=== PATIENT | female | born 1960 ===

== ENCOUNTER → 2020-07-25 13:13 | Outpatient (BNVA) | payer MEDICAID, SELFPAY | PROVIDERS: PCP Family Medicine; Referring Provider Family Medicine; Visit Provider Student in an Organized Health Care Education/Training Program | DX: M15.4 Erosive (osteo)arthritis (principal) | CPT/HCPCS: 99212 ==

== ENCOUNTER 2020-12-15 09:12 | Outpatient (REF) | payer MEDICAID, SELFPAY ==
[2020-12-15 10:23] LABS: Hematocrit 39.6 % (37-47); Mean Corpuscular HGB Conc 32.8 g/dl (31.0-35.0); Mean Corpuscular Hemoglobin 30.2 pg (27.0-33.0); Mean Corpuscular Volume 91.9 fL (80-98); Mean Platelet Volume 9.7 fL (9.4-12.3); Platelet Count 258 X10*3/uL (160-400); Red Blood Count 4.31 X10*6/uL (4.20-5.50); Red Cell Distribution Width 12.5 % (11.0-16.0); White Blood Count 4.5 X10*3/uL (4.8-10.8)
[2020-12-15 10:30] LABS: Estimated Average Glucose 117 mg/dL; Hemoglobin A1c % 5.7 %
[2020-12-15 10:49] LABS: Alanine Aminotransferase 13 U/L (0-31); Albumin Level 4.4 g/dL (3.5-5.0); Alkaline Phosphatase 82 U/L (39-117); Anion Gap 10 (12-20); Aspartate Amino Transferase 18 U/L (5-31); Bilirubin Direct 0.2 mg/dL (0.0-0.5); Bilirubin Total 0.5 mg/dL (0.0-1.0); Blood Urea Nitrogen 18 mg/dL (9-16); Calcium 9.4 mg/dL (8.4-10.2); Carbon Dioxide 28 mmol/L (22-29); Chloride 105 mmol/L (96-108); Cholesterol 195 mg/dL; Estimated Glomerular Filt Rate > 60; Glucose Random 97 mg/dL (60-115); HDL Cholesterol 45 mg/dL; LDL Cholesterol Calculated 127 mg/dl; Potassium 4.3 mmol/L (3.3-5.1); Sodium 139 mmol/L (135-145); Total Protein 7.7 g/dL (6.5-8.0); Triglycerides 119 mg/dL
[2020-12-15 10:58] LABS: Thyroid Stimulating Hormone 1.71 uIU/mL (0.32-4.0); Vitamin D 25-OH Total 20.4 ng/mL (>30)
[2020-12-15 11:38] LABS: Creatinine Urine 172.27 mg/dL
== END 2020-12-15 09:13 | disposition home or self-care (01) ==
LOC: HO.LAB 09:12
PROVIDERS: PCP Family Medicine; Visit Provider Family Medicine
DX: I10 Essential (primary) hypertension (principal)
CPT/HCPCS: 36415; 80048; 80061; 80076; 82043; 82306; 83036; 84439; 84443; 85027

== ENCOUNTER 2021-01-12 13:14 | Outpatient (REF) | payer MEDICAID, SELFPAY ==
--- NOTE | ~2021-01-12 | MM_ITS ---
EXAMINATION: MM SCREENING DIGITAL BREAST TOMOSYNTHESIS, BILATERAL CLINICAL INFORMATION: Screening. Asymptomatic. The lifetime risk of breast cancer based on the Tyrer-Cuzick Model is 8%. COMPARISON: Mammography: 06/30/2018, 05/08/2017, 03/18/2016 TECHNIQUE: Digital breast tomosynthesis is performed in both the craniocaudal and mediolateral oblique views along with computer-aided detection (CAD). Synthesized 2D images are generated from the tomosynthesis. FINDINGS: The breasts are heterogeneously dense, which may obscure small masses (ACR BI-RADS breast composition Category c). There are no significant masses, abnormal calcifications, or other abnormalities. Breast tissue composition borders on average fibroglandular. Parenchymal pattern is similar to prior exams. No significant changes. MM/MM tomosynthesis screening BI IMPRESSION: No mammographic evidence of malignancy. ASSESSMENT: BI-RADS 1: Negative RECOMMENDATION: Routine annual mammography screening. This patient's information was entered into a reminder system with a target due date for their next mammogram.
== END 2021-01-12 13:15 | disposition home or self-care (01) ==
LOC: HO.MAMMO 13:14
PROVIDERS: Visit Provider Family Medicine
DX: Z12.31 Encounter for screening mammogram for malignant neoplasm of breast (principal)
CPT/HCPCS: 77063; 77067

== ENCOUNTER 2021-10-27 09:25 | Outpatient (REF) | payer MEDICAID, SELFPAY ==
[2021-10-27 10:04] LABS: Hematocrit 37.5 % (37.0-47.0); Hemoglobin 12.6 g/dl (12.0-16.0); Mean Corpuscular HGB Conc 33.6 g/dl (31.0-35.0); Mean Corpuscular Hemoglobin 30.5 pg (27.0-33.0); Mean Corpuscular Volume 90.8 fL (80.0-98.0); Mean Platelet Volume 9.6 fL (9.4-12.3); Platelet Count 287 X10*3/uL (160-400); Red Blood Count 4.13 X10*6/uL (4.20-5.50); White Blood Count 4.4 X10*3/uL (4.8-10.8)
[2021-10-27 10:10] LABS: Estimated Average Glucose 120 mg/dL; Hemoglobin A1c % 5.8 %
[2021-10-27 10:27] LABS: Alanine Aminotransferase 13 U/L (0-31); Albumin Level 4.4 g/dL (3.5-5.0); Alkaline Phosphatase 79 U/L (39-117); Anion Gap 11 (12-20); Aspartate Amino Transferase 18 U/L (5-31); Bilirubin Direct 0.2 mg/dL (0.0-0.5); Bilirubin Total 0.4 mg/dL (0.0-1.0); Blood Urea Nitrogen 22 mg/dL (9-16); Calcium 9.7 mg/dL (8.4-10.2); Carbon Dioxide 26 mmol/L (22-29); Chloride 104 mmol/L (96-108); Cholesterol 202 mg/dL; Estimated Glomerular Filt Rate > 60; Glucose Random 99 mg/dL (60-115); HDL Cholesterol 48 mg/dL; LDL Cholesterol Calculated 136 mg/dl; Potassium 4.4 mmol/L (3.3-5.1); Sodium 137 mmol/L (135-145); Total Protein 8.1 g/dL (6.5-8.0); Triglycerides 91 mg/dL
[2021-10-27 10:49] LABS: Free T4 (Free Thyroxine) 0.85 ng/dL (0.71-1.85); Thyroid Stimulating Hormone 1.84 uIU/mL (0.32-4.0); Vitamin D 25-OH Total 18.5 ng/mL (>30)
[2021-10-27 11:49] LABS: Creatinine Urine 90.33 mg/dL; Microalbumin Urine < 5.0 mg/L
[2021-10-27 12:30] LABS: CT PCR NOT DETECTED (Not Detect.); NG PCR NOT DETECTED (Not Detect.)
[2021-10-29 03:48] LABS: HIV AB/AG Nonreactive (Nonreactive); HIV Num 1 0.14 S/CO (0.00-0.99)
[2021-10-29 03:49] LABS: ~HepC Num1 0.15 S/CO (0.00-0.79); ~Hepatitis C Antibody Nonreactive (Nonreactive)
[2021-10-29 06:01] LABS: Syphilis Screen Nonreactive (Nonreactive)
== END 2021-10-27 09:26 | disposition home or self-care (01) ==
LOC: HO.LAB 09:25
PROVIDERS: PCP Family Medicine; Visit Provider Family Medicine
DX: Z00.00 Encounter for general adult medical examination without abnormal findings (principal); Z11.4 Encounter for screening for human immunodeficiency virus [HIV]; Z11.3 Encounter for screening for infections with a predominantly sexual mode of transmission; I10 Essential (primary) hypertension
CPT/HCPCS: 80053; 80061; 82043; 82248; 82306; 83036; 84439; 84443; 85027; 86780; 86803; 87389; 87491; 87591

== ENCOUNTER 2021-12-26 10:34 | Outpatient (REF) | payer MEDICAID, SELFPAY ==
--- NOTE | 2021-12-26 10:39 | EMG_ITS ---
HISTORY OF PRESENT ILLNESS: This is a 61-year-old woman with a 3-month history of pain, numbness, and tingling in the upper extremities with the right being slightly worse than the left. PHYSICAL EXAMINATION: On examination, she is alert, oriented with normal intellectual functions. Her cranial nerves II through XII are normal. Muscle tone and strength are normal in all 4 extremities. No Tinel or Phalen sign. IMPRESSION: Rule out carpal tunnel syndrome. Nerve conduction EMG study: Early carpal tunnel syndrome bilaterally. Normal EMG of the right C5-T1 innervated muscles. MD ROMÁN Winston/FELICITA / [id number]
== END 2021-12-26 10:35 | disposition home or self-care (01) ==
LOC: HO.NEURO 10:34
PROVIDERS: Visit Provider Family Medicine
DX: M79.601 Pain in right arm (principal); M79.602 Pain in left arm
CPT/HCPCS: 95885; 95913

== ENCOUNTER 2022-01-02 09:05 | Outpatient (REF) | payer MEDICAID, SELFPAY ==
--- NOTE | ~2022-01-02 | XR_ITS ---
EXAMINATION: XR HAND, LEFT CLINICAL INFORMATION: Pain COMPARISON: Previous x-ray December 2018 TECHNIQUE: PA, lateral, and oblique views of the left hand. FINDINGS: No fracture or dislocation. Bone alignment is normal. There is arthritis at the DIP joints of the second through fifth fingers with joint space narrowing and osteophyte formation. There is increasing erosive change questionable for erosive osteoarthritis at the second and fourth and fifth fingers. This is increased from 2019. There is mild arthritis at the first ASSISTED joint with joint space narrowing and osteophyte formation. Soft tissues are unremarkable. XR/XR hand LT min 3V IMPRESSION: Increasing arthritis compared to December 2018.
== END 2022-01-02 09:06 | disposition home or self-care (01) ==
LOC: HO.HOSX 09:05
PROVIDERS: Visit Provider Orthopaedic Surgery
DX: M18.12 Unilateral primary osteoarthritis of first carpometacarpal joint, left hand (principal); G56.03 Carpal tunnel syndrome, bilateral upper limbs
CPT/HCPCS: 20600; 73130; 99202; J1020

== ENCOUNTER 2022-03-30 10:24 | Outpatient (REF) | payer MEDICAID, SELFPAY ==
--- NOTE | ~2022-03-30 | MM_ITS ---
EXAMINATION: MM SCREENING DIGITAL BREAST TOMOSYNTHESIS, BILATERAL CLINICAL INFORMATION: Screening. Asymptomatic. The lifetime risk of breast cancer based on the Tyrer-Cuzick Model is 8%. COMPARISON: Mammography: 01/12/2021, 07/12/2018, 05/08/2017 TECHNIQUE: Digital breast tomosynthesis is performed in both the craniocaudal and mediolateral oblique views along with computer-aided detection (CAD). Synthesized 2D images are generated from the tomosynthesis. Additional exaggerated left CC view is provided. FINDINGS: The breasts are heterogeneously dense, which may obscure small masses (ACR BI-RADS breast composition Category c). Breast tissue composition borders on average fibroglandular. Parenchymal pattern is similar to prior studies. There are no significant masses, abnormal calcifications, or other abnormalities. The axilla are unremarkable. MM/MM tomosynthesis screening BI IMPRESSION: No mammographic evidence of malignancy. ASSESSMENT: BI-RADS 1: Negative RECOMMENDATION: Routine annual mammography screening. This patient's information was entered into a reminder system with a target due date for their next mammogram.
== END 2022-03-30 10:25 | disposition home or self-care (01) ==
LOC: HO.MAMMO 10:24
PROVIDERS: PCP Family Medicine; Visit Provider Family Medicine
DX: Z12.31 Encounter for screening mammogram for malignant neoplasm of breast (principal)
CPT/HCPCS: 77063; 77067

== ENCOUNTER 2022-11-04 10:15 | Outpatient (REF) | payer MEDICAID, SELFPAY ==
[2022-11-04 10:32] LABS: MANUAL DIFF FLAG NO
[2022-11-04 11:04] LABS: Basophils Absolute Auto 0.1 X10*3/uL (0.0-0.2); Basophils Percent Auto 1.2 % (0-2); Eosinophils Absolute Auto 0.2 X10*3/uL (0.0-0.4); Eosinophils Percent Auto 3.1 % (0-4); Hematocrit 40.7 % (37.0-47.0); Hemoglobin 13.5 g/dl (12.0-16.0); Imm Gran Abs Auto 0.01 X10*3/uL (0.00-0.03); Imm Gran Pct Auto 0.2 % (0.0-0.4); Lymphocytes Absolute Auto 1.6 X10*3/uL (1.2-4.9); Lymphocytes Percent Auto 29.9 % (20-40); Mean Corpuscular HGB Conc 33.2 g/dl (31.0-35.0); Mean Corpuscular Hemoglobin 29.9 pg (27.0-33.0); Mean Corpuscular Volume 90.2 fL (80.0-98.0); Mean Platelet Volume 9.6 fL (9.4-12.3); Monocytes Absolute Auto 0.5 X10*3/uL (0.1-1.2); Monocytes Percent Auto 8.7 % (2-11); Neutrophils Percent Auto 56.9 % (45-73); Platelet Count 286 X10*3/uL (160-400); Red Blood Count 4.51 X10*6/uL (4.20-5.50); Red Cell Distribution Width 12.5 % (11.0-16.0); White Blood Count 5.2 X10*3/uL (4.8-10.8)
[2022-11-04 11:26] LABS: Estimated Average Glucose 120 mg/dL; Hemoglobin A1C 148.7372 umol/L; Hemoglobin A1c % 5.8 %
[2022-11-04 11:48] LABS: Alanine Aminotransferase 14 U/L (0-31); Albumin Level 4.5 g/dL (3.5-5.0); Alkaline Phosphatase 89 U/L (39-117); Anion Gap 12 (12-20); Aspartate Amino Transferase 17 U/L (5-31); Bilirubin Direct 0.1 mg/dL (0.0-0.5); Bilirubin Total 0.4 mg/dL (0.0-1.0); Blood Urea Nitrogen 19 mg/dL (9-16); Calcium 9.6 mg/dL (8.4-10.2); Carbon Dioxide 28 mmol/L (22-29); Chloride 102 mmol/L (96-108); Cholesterol 215 mg/dL; Estimated Glomerular Filt Rate > 60; Glucose Random 103 mg/dL (60-115); HDL Cholesterol 47 mg/dL; LDL Cholesterol Calculated 145 mg/dl; Potassium 4.5 mmol/L (3.3-5.1); Sodium 137 mmol/L (135-145); Total Protein 8.1 g/dL (6.5-8.0); Triglycerides 116 mg/dL
[2022-11-04 12:07] LABS: Free T4 (Free Thyroxine) 0.86 ng/dL (0.71-1.85); Thyroid Stimulating Hormone 1.66 uIU/mL (0.32-4.0); Vitamin D 25-OH Total 25.1 ng/mL (>30)
[2022-11-04 12:12] LABS: Creatinine Urine 102.07 mg/dL; Microalbum/Creatinine Ratio Ur 5.8 ug/mg cr
== END 2022-11-04 10:16 | disposition home or self-care (01) ==
LOC: HO.LAB 10:15
PROVIDERS: PCP Family Medicine; Visit Provider Family Medicine
DX: I10 Essential (primary) hypertension (principal)
CPT/HCPCS: 36415; 80048; 80061; 80076; 82043; 82306; 83036; 84439; 84443; 85025

== ENCOUNTER 2023-08-13 11:27 | Outpatient (REF) | payer MEDICAID, SELFPAY | END 2023-08-13 11:28 | disposition home or self-care (01) | LOC: HO.MAMMO 11:27 | PROVIDERS: PCP Family Medicine; Visit Provider Family Medicine | DX: Z12.31 Encounter for screening mammogram for malignant neoplasm of breast (principal) | CPT/HCPCS: 77063; 77067 ==

== ENCOUNTER → 2023-08-13 11:30 | Outpatient (BNV) | payer MEDICAID, SELFPAY | PROVIDERS: PCP Family Medicine; Visit Provider Radiology Diagnostic Radiology | DX: Z12.31 Encounter for screening mammogram for malignant neoplasm of breast (principal) | CPT/HCPCS: 77063; 77067 ==

== ENCOUNTER 2023-10-01 10:28 | Outpatient (REF) | payer MEDICAID, SELFPAY ==
--- NOTE | ~2023-10-01 | XR_ITS ---
EXAMINATION: XR SHOULDER, RIGHT CLINICAL INFORMATION: Pain of several months' duration. COMPARISON: None available. TECHNIQUE: AP external rotation, Grashey, scapular Y, and axillary views of the right shoulder. FINDINGS: Bony alignment and mineralization are normal. The glenohumeral joint is intact. The acromioclavicular and coracoclavicular intervals are normal. No fracture or dislocation is seen. There is mild cortical irregularity of the greater tuberosity of the proximal right humerus. There is no focal soft tissue calcification or foreign body. No right pneumothorax is seen. XR/XR shoulder LT min 2V IMPRESSION: 1. No fracture or dislocation is seen. 2. There is mild cortical irregularity of the greater tuberosity of the proximal right humerus, which can be associated with rotator cuff impingement. No ness calcific tendinitis is noted. EXAMINATION: XR SHOULDER, LEFT CLINICAL INFORMATION: Pain of several months' duration COMPARISON: None available. TECHNIQUE: AP external rotation, Grashey, scapular Y, and axillary views of the left shoulder. FINDINGS: Bony alignment and mineralization are normal. The glenohumeral joint is intact. The acromioclavicular and coracoclavicular intervals are normal. There is moderate cortical irregularity of the greater tuberosity of the proximal left humerus. No focal soft tissue calcific station or foreign body is seen. There is no right pneumothorax. IMPRESSION: 1. No fracture or dislocation is seen. 2. There is mild cortical irregularity of the greater tuberosity of the proximal left humerus, which can be associated with rotator cuff impingement. No ness calcific tendinitis is noted.
--- NOTE | ~2023-10-01 | XR_ITS ---
EXAMINATION: XR SHOULDER, RIGHT CLINICAL INFORMATION: Pain of several months' duration. COMPARISON: None available. TECHNIQUE: AP external rotation, Grashey, scapular Y, and axillary views of the right shoulder. FINDINGS: Bony alignment and mineralization are normal. The glenohumeral joint is intact. The acromioclavicular and coracoclavicular intervals are normal. No fracture or dislocation is seen. There is mild cortical irregularity of the greater tuberosity of the proximal right humerus. There is no focal soft tissue calcification or foreign body. No right pneumothorax is seen. XR/XR shoulder RT min 2V IMPRESSION: 1. No fracture or dislocation is seen. 2. There is mild cortical irregularity of the greater tuberosity of the proximal right humerus, which can be associated with rotator cuff impingement. No ness calcific tendinitis is noted. EXAMINATION: XR SHOULDER, LEFT CLINICAL INFORMATION: Pain of several months' duration COMPARISON: None available. TECHNIQUE: AP external rotation, Grashey, scapular Y, and axillary views of the left shoulder. FINDINGS: Bony alignment and mineralization are normal. The glenohumeral joint is intact. The acromioclavicular and coracoclavicular intervals are normal. There is moderate cortical irregularity of the greater tuberosity of the proximal left humerus. No focal soft tissue calcific station or foreign body is seen. There is no right pneumothorax. IMPRESSION: 1. No fracture or dislocation is seen. 2. There is mild cortical irregularity of the greater tuberosity of the proximal left humerus, which can be associated with rotator cuff impingement. No ness calcific tendinitis is noted.
--- NOTE | ~2023-10-01 | XR_ITS ---
EXAMINATION: XR LUMBOSACRAL SPINE CLINICAL INFORMATION: Lower back pain radiating to the left knee. COMPARISON: None available. TECHNIQUE: AP and lateral views of the lumbar spine and lateral view of the lumbosacral junction. FINDINGS: There is mild bony demineralization. There is a mild lumbar rotatory levoscoliosis. The lumbar disc spaces are well-maintained. No acute fracture or spondylolisthesis is seen. There is multi-level lower thoracic and upper lumbar anterior endplate arthropathy. The posterior elements are intact. The paravertebral soft tissues are unremarkable. There are pelvic phleboliths. XR/XR lumbar spine 2-3V IMPRESSION: 1. There is a mild lumbar rotatory levoscoliosis. 2. No acute fracture or spondylolisthesis is seen. 3. The lumbar disc spaces are well-maintained.
[2023-10-01 11:23] LABS: Hematocrit 38.4 % (37.0-47.0); Mean Corpuscular HGB Conc 33.9 g/dl (31.0-35.0); Mean Corpuscular Hemoglobin 30.3 pg (27.0-33.0); Mean Corpuscular Volume 89.5 fL (80.0-98.0); Mean Platelet Volume 9.6 fL (9.4-12.3); Platelet Count 275 X10*3/uL (160-400); Red Blood Count 4.29 X10*6/uL (4.20-5.50); Red Cell Distribution Width 12.7 % (11.0-16.0); White Blood Count 6.2 X10*3/uL (4.8-10.8)
[2023-10-01 11:39] LABS: Estimated Average Glucose 123 mg/dL; Hemoglobin A1c % 5.9 % (<6.0)
[2023-10-01 12:11] LABS: Alanine Aminotransferase 17 U/L (0-31); Albumin Level 4.2 g/dL (3.5-5.0); Alkaline Phosphatase 87 U/L (39-117); Anion Gap 13 (12-20); Aspartate Amino Transferase 15 U/L (5-31); Bilirubin Direct 0.1 mg/dL (0.0-0.5); Bilirubin Total 0.3 mg/dL (0.0-1.0); Blood Urea Nitrogen 22 mg/dL (9-16); C Reactive Protein 0.17 mg/dL (< or = 0.50); Calcium 9.2 mg/dL (8.4-10.2); Carbon Dioxide 27 mmol/L (22-29); Chloride 105 mmol/L (96-108); Cholesterol 191 mg/dL (<200); Estimated Glomerular Filt Rate > 60; Free T4 (Free Thyroxine) 0.77 ng/dL (0.71-1.85); Glucose Random 113 mg/dL (60-115); HDL Cholesterol 40 mg/dL (>40); LDL Cholesterol Calculated 106 mg/dL (<100); Potassium 4.2 mmol/L (3.3-5.1); Sodium 141 mmol/L (135-145); Total Protein 7.9 g/dL (6.5-8.0); Triglycerides 228 mg/dL (<150); Vitamin D 25-OH Total 25.3 ng/mL (>30)
[2023-10-01 12:12] LABS: Rheumatoid Factor < 13.0 IU/mL (<15.0)
[2023-10-01 12:27] LABS: Erythrocyte Sedimentation Rate 16 MM/HR (0-20)
[2023-10-01 13:23] LABS: Creatinine Urine 127.91 mg/dL; Microalbum/Creatinine Ratio Ur 4.6 ug/mg cr (<30)
[2023-10-02 08:39] LABS: Lyme Abs Screen <0.90 index
[2023-10-05 10:54] LABS: Anti Nuclear Antibody Screen NEGATIVE (NEGATIVE)
== END 2023-10-01 10:29 | disposition home or self-care (01) ==
LOC: HO.LAB 10:28
PROVIDERS: Visit Provider Family Medicine
DX: I10 Essential (primary) hypertension (principal); M25.511 Pain in right shoulder; G89.29 Other chronic pain; M25.512 Pain in left shoulder; M54.42 Lumbago with sciatica, left side
CPT/HCPCS: 36415; 72100; 73030; 80048; 80061; 80076; 82043; 82306; 82570; 83036; 84439; 84443; 85027; 85652; 86038; 86140; 86431; 86617; 86618

== ENCOUNTER 2023-12-12 07:07 | Outpatient (REF) | payer MEDICAID, SELFPAY ==
--- NOTE | ~2023-12-12 | XR_ITS ---
EXAMINATION: XR TIBIA AND FIBULA, LEFT CLINICAL INFORMATION: Pain. COMPARISON: None available. TECHNIQUE: AP and lateral views of the left tibia and fibula were obtained. FINDINGS: Obliquely oriented fracture of the proximal fibula with mild displacement, cortical step-off of approximately 4 mm. No additional fractures. No unexpected radiopaque foreign bodies. XR/XR tibia fibula LT 2V IMPRESSION: Proximal fibular fracture.
== END 2023-12-12 07:08 | disposition home or self-care (01) ==
LOC: HO.HOSX 07:07
PROVIDERS: Visit Provider Physician Assistant
DX: M79.605 Pain in left leg (principal); S82.832D Other fracture of upper and lower end of left fibula, subsequent encounter for closed fracture with routine healing; X58.XXXD Exposure to other specified factors, subsequent encounter; Z91.81 History of falling
CPT/HCPCS: 73590; 99212

== ENCOUNTER 2023-12-12 10:04 | Outpatient (AMB) | payer MEDICAID, SELFPAY ==
--- NOTE | 2023-12-12 10:13 | A.OFFVIS_ITS ---
Vital Signs 12/12/23 10:26 Height 5 ft 2 in Weight 170 lb BMI 31.1 Intake Visit Reasons: FC- LT leg prox fibula fracture Intake Note: This is a 63 year old female who presents for a left leg proximal fibula fracture. She reports sharp pain down her leg and to her left ankle. DOI: October 2023. Allergies penicillin V Allergy (Intermediate, Verified 12/12/23 10:29) rash Sulfa (Sulfonamide Antibiotics) Allergy (Intermediate, Verified 12/12/23 10:29) rash amoxicillin [AMOXICILLIN] Allergy (Unknown, Unverified 12/12/23 10:29) RASH cephalexin [CEPHALEXIN] Allergy (Unknown, Verified 12/12/23 10:29) RASH ciprofloxacin [CIPROFLOXACIN] Allergy (Unknown, Verified 12/12/23 10:29) UNKNOWN Penicillins [PENICILLINS] Allergy (Unknown, Verified 12/12/23 10:29) HIVES sulfamethoxazole [From BACTRIM] Adverse Reaction (Unknown, Verified 12/12/23 10:29) HEADACHES trimethoprim [From BACTRIM] Adverse Reaction (Unknown, Verified 12/12/23 10:29) HEADACHES From KEFLEX Allergy (Unknown, Uncoded 12/12/23 10:29) RASH Medication List - Last Reconciled 12/12/23 by Ernst Alba PA-C albuterol sulfate 90 mcg/actuation 2 puffs inhalation Q6H PRN baclofen 10 mg PO TID calcium carbonate-vitamin D3 600 mg-12.5 mcg (500 unit) (Calcium 600 with Vitamin D3) 1 cap PO DAILY fluticasone propionate 50 mcg/actuation 1 spray intranasal DAILY lisinopril 10 mg PO DAILY multivitamin 1 tab PO DAILY HPI HPI FC- LT leg prox fibula fracture: Details: 63-year-old female who presents to the office today for an evaluation of left knee injury after sustaining a fall and hurting her leg. She was seen at ER for her pain. She currently states she has a sharp shooting pain as well as pressure sensation in her knee with ambulation. She finds mild relief with Tylenol. She has not had any physical therapy in the past. [facility] Medical History Erosive (osteo)arthritis GERD (gastroesophageal reflux disease) Hypertension Surgical History H/O removal of cyst Hx of section Family History Mother HTN (hypertension) Social History (Updated 01/02/22 @ 11:43 by NELSON Schulz) Alcohol intake: never Current occupational status: disabled Current occupation: rt hand Review of Systems Const All systems reviewed & are unremarkable except as noted in HPI and below Physical Exam Vital Signs: BMI result Body Mass Index 31.1 Const General: cooperative, healthy appearing, comfortable, no acute distress, well developed and alert Orientation/consciousness: patient oriented x3 HEENT Head: Yes normal to inspection, Yes normocephalic and Yes atraumatic Eyes General: appearance normal, both eyes and all related structures Resp Effort & Inspection: normal respiratory effort and able to speak in complete sentences Cardio Rate: regular rate Peripheral pulses: Peripheral pulses 2+ throughout GI Palpation (GI): Soft to palpation Skin Lesions: no lesions Rashes: no rashes Neuro General: patient oriented x3 Extrem Other: LLE: Normal to inspection. Mild tenderness over the proximal fibula. Full ROM of the knee. NVI. Office Procedures Fracture Care Fracture Billing Code: Fracture Billing Code Results Reviewed Results Reviewed: Xrays were obtained in the office today and personally reviewed by me of the left tib fib show prox fibula fx Assessment & Plan Assessment & Plan (1) Fracture of left proximal fibula: Code(s): S82.832A - Other fracture of upper and lower end of left fibula, initial encounter for closed fracture Category: Medical Qualifiers: Encounter type: initial encounter Fracture type: closed Fracture morphology: other fracture Qualified Code(s): S82.832A - Other fracture of upper and lower end of left fibula, initial encounter for closed fracture Plan Given the injury is approximately 6 weeks out, I recommend wearing a tall boot weight bearing as tolerated for 2 weeks to allow the symptoms to subside. She can transition to a regular street shoe as symptoms allow and she will increase activities as tolerated. She will see me back if symptoms arise. Orders: Orders XR tibia fibula LT 2V 12/12/23 M79.605 - Pain in left leg Patient Instructions: Scribed for Ernst Alba PA-C, by Regino Abhang, senior medical writer, on 12/12/2023 at 10:15 AM EST.? I, Ernst Alba PA-C, have personally reviewed and agree with the information entered by the scribe. Coding Level of Care Code New Pt Level 3 (30924) Diagnoses Other closed fracture of proximal end of left fibula, initial encounter S82.832A Encounter type: initial encounter Fracture type: closed Fracture morphology: other fracture CPT Codes Fracture Care - Fracture Billing Code: Fracture Billing Code ([id number])
[2023-12-12 10:26] VITALS: BMI 31.1
== END 2023-12-12 11:01 | disposition home or self-care (01) ==
PROVIDERS: PCP Family Medicine; Visit Provider Physician Assistant
DX: S82.832A Other fracture of upper and lower end of left fibula, initial encounter for closed fracture (principal)
CPT/HCPCS: 99213

== ENCOUNTER 2024-03-31 08:22 | Outpatient (REF) | payer MEDICAID, SELFPAY | END 2024-03-31 08:23 | disposition home or self-care (01) | LOC: HO.HOSX 08:22 | DX: M79.642 Pain in left hand (principal); M18.12 Unilateral primary osteoarthritis of first carpometacarpal joint, left hand | CPT/HCPCS: 73130; 99212 ==

== ENCOUNTER 2024-03-31 09:46 | Outpatient (AMB) | payer MEDICAID, SELFPAY ==
--- NOTE | 2024-03-31 10:03 | MHC.OFFVIS ---
Vital Signs 03/31/24 10:04 Height 5 ft 2 in Weight 170 lb BMI 31.1 Handedness Right Intake Visit Reasons: OV - left hand pain Intake Note: Iris is a 63 year old right hand dominant female who presents today for a follow up visit of her left hand pain. Patient was last seen in office on 01/02/22 w/ Dr Son for B/L hand numbness and tingling and her left basal joint was injected. Hx of EMG done on 12/26/2021. Patient reports she is having difficulty with gripping, grasping, lifting, and opening objects due to her pain and swelling of her at her CMC joint of left hand. She does find some relief wit Tylenol and ibuprofen. She said she has tried a brace in the past and this has also helped but she no longer has it. Allergies penicillin V Allergy (Intermediate, Verified 03/31/24 10:05) rash Sulfa (Sulfonamide Antibiotics) Allergy (Intermediate, Verified 03/31/24 10:05) rash amoxicillin [AMOXICILLIN] Allergy (Unknown, Unverified 03/31/24 10:05) RASH cephalexin [CEPHALEXIN] Allergy (Unknown, Verified 03/31/24 10:05) RASH ciprofloxacin [CIPROFLOXACIN] Allergy (Unknown, Verified 03/31/24 10:05) UNKNOWN Penicillins [PENICILLINS] Allergy (Unknown, Verified 03/31/24 10:05) HIVES sulfamethoxazole [From BACTRIM] Adverse Reaction (Unknown, Verified 03/31/24 10:05) HEADACHES trimethoprim [From BACTRIM] Adverse Reaction (Unknown, Verified 03/31/24 10:05) HEADACHES From KEFLEX Allergy (Unknown, Uncoded 03/31/24 10:05) RASH HPI HPI OV - left hand pain: Details: Patient is a 63-year-old female who presents for evaluation of left thumb pain, ongoing for approximately 2-3 months. The patient reports that over that time, she has begun to experience significant discomfort at the base of the left thumb that worsens with movement. The patient also reports that she has noticed increased swelling at the base of the left thumb over this time. Patient reports that [id number] pain medication does help, and she was previously provided with a brace at help, although she no longer knows where this braces. Patient denies any numbness or tingling in the left hand. No other acute complaints or at this time. [facility] Medical History Prediabetes Allergic rhinitis Vitamin D deficiency Chronic pain of both shoulders Chronic neck pain GERD (gastroesophageal reflux disease) Hypertension Erosive (osteo)arthritis Surgical History H/O removal of cyst Hx of section Family History Mother HTN (hypertension) Social History Alcohol intake: never Current occupational status: disabled Current occupation: rt hand Review of Systems Const All systems reviewed & are unremarkable except as noted in HPI and below Physical Exam Vital Signs: BMI result Body Mass Index 31.1 Extrem Other: Patient is alert, oriented, and in no acute distress. Neuro: Normal sensation of the tips of all digits of the left hand at this time Vascular: Cap refill brisk Pain: Patient reports significant discomfort with deep palpation to the basal joint of the left thumb Positive CMC grind No tenderness to palpation of the radial styloid or the MCP joint of the left thumb No ligamentous laxity noted with varus and valgus testing of the left MCP joint ROM: Patient is able to make closed fist and extend all digits of the left hand fully, but reports some discomfort in the left thumb while doing so Skin: No lacerations or abrasions. General: There is noted to be moderate edema over the basal joint of the left thumb No ecchymosis, erythema, or evidence of infection. Psych: Appears grossly normal Affect normal Attitude cooperative Results Reviewed Results Reviewed: X-rays obtained in the office today and independently reviewed by me, Marky Shetty PA-C, demonstrate moderate to severe degenerative changes of the 1st CMC joint with significant joint space narrowing and osteophyte formation. Assessment & Plan Assessment & Plan (1) Arthritis of carpometacarpal (CMC) joint of left thumb: Code(s): M18.12 - Unilateral primary osteoarthritis of first carpometacarpal joint, left hand Category: Medical Plan 1. 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 Patient is educated about this condition Patient is educated about the typical treatment course At this time, patient would like to hold off on any injections into the basal joint, and would like to proceed with conservative management 1st Patient was provided with comfort cool thumb spica brace to be worn with daytime activities Patient is also referred to occupational hand therapy for range of motion, strengthening, stabilization of the left hand, particularly of the left thumb Patient was amenable to this plan Patient is informed that due to the very significant narrowing of her joint, if she would like to pursue injections it would likely have to be Dr. Son who performed the injection as it may require guidance under imaging Patient understands this Patient will follow-up as needed with any acute concerns Orders: Orders XR hand LT min 3V Today M79.642 - Pain in left hand OT Evaluation and Treatment Today M18.12 - Unilateral primary osteoarthritis of first carpometacarpal joint, left hand Coding Level of Care Code Est Pt Level 3 (29623) Diagnoses Arthritis of carpometacarpal (CMC) joint of left thumb M18.12
[2024-03-31 10:04] VITALS: BMI 31.1
== END 2024-03-31 10:47 | disposition home or self-care (01) ==
PROVIDERS: PCP Family Medicine
DX: M18.12 Unilateral primary osteoarthritis of first carpometacarpal joint, left hand (principal)
CPT/HCPCS: 99213

== ENCOUNTER 2024-05-05 08:48 | Outpatient (RCR) | payer MEDICAID, SELFPAY ==
--- NOTE | 2024-05-05 10:06 | MHC.OT.EP ---
[address] [phone] Occupational Therapy Plan of Care Patient Name: Carmen Horne Date of Evaluation: 05/05/24 Diagnosis: CMC OA Pain Location: CMC J L thumb Pain Score: 7 Pain Scale Used: Numeric (0 - 10) Aggravating Factors: cold, overuse Alleviating Factors: compression gloves, warm weather Assessment: Pt is a 63 yr. old R hand dominant female who reports pain in her L thumb (base) which has been painful for a few mos. She denies any trauma to the hand. She has been wearing compression gloves which she feels is helping w/ edema and pain. She saw the PA, and had an X-ray; she was diagnosed w/ L CMC J OA. She has atrophy and wasting of her thumb. She had a positive Grind Test and reports pain w/ palpation of her CMC J; carpal bones are intact, her AROM is WNL. She has been referred to skilled OT therapy for education on modifications of activities, joint protections, splinting, modalities, and exercises to increase the functional use of her L hand Frequency and Duration: The patient will be seen 1 x a week for 4 weeks Short Term Goals: SEE BELOW Fpc Goals: Pt will report 3/ 10 pain in the morning Pt will be complaint w/ joint protection / modifications of activity Pt will adhere to HEP Pt will be compliant w/ orthoses wear/ care Treatment Plan: Therapeutic Exercise Therapeutic Activity Home Exercise Program Splinting Patient Education Edema Control ADL Training Ultrasound NMES Iontophoresis Paraffin Fluidotherapy MHP Cold Packs Joint Mobilization Soft Tissue Mobilization Kinesiotaping Other (see comments) focus on education Electronically Signed By: Yohana East OTR/L Please Sign and return to therapist. Thank you once again for your referral.
== END 2024-08-12 14:59 | disposition home or self-care (01) ==
LOC: HO.OT 08:48
PROVIDERS: PCP Family Medicine
DX: M18.12 Unilateral primary osteoarthritis of first carpometacarpal joint, left hand (principal)
CPT/HCPCS: 97110; 97140; 97165

== ENCOUNTER 2024-08-25 11:14 | Outpatient (REF) | payer MEDICAID, SELFPAY ==
--- OUTSIDE RECORDS SUMMARY | 2024-08-25 13:33 | XMS_ITS | Encounter Summary ---
Author Organization [employer] Address [address] [place] [address] Care Team Providers Care Business Relations Manager Name Role Phone Hayde Castro DO Primary Care Provider + [phone] Reason for Visit * Reason Onset Date Comments Appointment Request 07/23/2023 Encounter Details Date Type Department Care Team ([facility] st Contact Info) Description 07/23/2023 Telephone [facility] [address], [place] [phone] Hayde Castro DO [address] [place], [place] [phone] Appointment Request Social History Tobacco Use Types Packs/Day Years Used Date Smoking Tobacco: Never Smokeless Tobacco: Never Alcohol Use Standard Drinks/Week Comments Never 0 (1 standard drink = 0.6 oz pur e alcohol) Housing Stability Answer Date Recorded What is your housing situation today? I have hina arredondo 05/03/[address] you li ve. Do you have problems with any of the following? None of the above 05/03/2023 Food Insecurity Answer Date Recorded Within the past 12 months, y ou worried that your food would run out before you got money to buy more: Never True 05/03/2023 Within the past 12 months,th e food you bought just didn't last and you didn't have enough money to get more: Never True 04/2023 Transportation Answer Date Recorded In the past 12 months, has l ack of transportation kept you from medical appts, meetings, work or from getting things needed for daily living? No 05/03/2023 Utilities Answer Date Recorded In the past 12 months, has t he electric, gas, oil or water company threatened to shut off services in your home? No 05/03/2023 Depression Answer Date Recorded Patient Health Questionnaire-2 Score 0 08/05/2022 Comments Unknown Sex and Gender Information Value Date Recorded Sex Assigned at Female 04/22/2022 10:14 AM EDT Legal Sex Female 10:14 AM EDT Gender Identity Female 04/22/2022 10:14 AM EDT Sexual Orientation Straight 04/22/2022 10 :14 AM EDT documented as of this encounter Miscellaneous Notes * Telephone Encounter - Hussein Wilfrido - 07/23/2023 10:01 AM EST Tc from pt requesting appt with pcp denied any immediate concerns. Please contact pt at [phone]. documented in this encounter Plan of Treatment Not on file documented as of this encounter Visit Diagnoses Not on filedocumented in this encounter Care Teams Business Relations Manager Relationship Specialty Start Date End Date Hayde Castro DO [address] [place] [address] PCP - General Family Medicine 06/21/13 documented as of this encounter
--- OUTSIDE RECORDS SUMMARY | 2024-08-25 13:33 | XMS_ITS | Encounter Summary ---
Author Organization [employer] Address [address] [facility] 7t [place] [address] Care Team Providers Care Checker Product Design Name Role Phone Hayed Castro DO Primary Care Provider [phone] Reason for Visit * Reason Comments Med Refill Encounter Details Date Type Department Care Team (Late st Contact Info) Description 02/16/[address] [facility] MEDICINE [address] [place], [place] [phone] Hayde Castro DO [address] [place] [address] Social History Tobacco Use Types Packs/Day Years Used Date Smoking Tobacco: Never Smokeless Tobacco: Never Alcohol Use Standard Drinks/Week Comments Never 0 (1 standard drink = 0.6 oz pur e alcohol) Depression Answer Date Recorded Patient Health Questionnaire-9 Score 2 09/17/2023 Patient Health Questionnaire-9 Score 2 09/17/2023 Last PHQ-9: Questionnaire Data Not on file 0 09/17/2023 Housing Stability Answer Date Recorded What is your housing situation today? I have hina arredondo 01/06/[address] you li ve. Do you have problems with any of the following? None of the above 01/06/2024 Food Insecurity Answer Date Recorded Within the past 12 months, y ou worried that your food would run out before you got money to buy more: Never True 01/06/2024 Within the past 12 months,th e food you bought just didn't last and you didn't have enough money to get more: Never True Transportation Answer Date Recorded In the past 12 months, has l ack of transportation kept you from medical appts, meetings, work or from getting things needed for daily living? No 01/06/2024 Utilities Answer Date Recorded In the past 12 months, has t he electric, gas, oil or water company threatened to shut off services in your home? No 01/06/2024 Depression Answer Date Recorded Patient Health Questionnaire-2 Score 1 09/17/2023 Comments Unknown Sex and Gender Information Value Date Recorded Sex Assigned at Female 04/22/2022 10:14 AM EDT Legal Sex Female 10:14 AM EDT Gender Identity Female 04/22/2022 10:14 AM EDT Sexual Orientation Straight 04/22/2022 10 :14 AM EDT documented as of this encounter Plan of Treatment Not on file documented as of this encounter Visit Diagnoses Not on filedocumented in this encounter Additional Health Concerns Assessment Noted Time PHQ-9 Depression Total Score: 2 09/17/19 24 10:11 AM EDT documented as of this encounter Care Teams Checker Product Design Relationship Specialty Start Date End Date Hayde Castro DO [address] [place] [phone] PCP - General Family Medicine 06/21/13 documented as of this encounter
--- OUTSIDE RECORDS SUMMARY | 2024-08-25 13:33 | XMS_ITS | Encounter Summary ---
Author Organization [employer] Address [address] [facility] 7t [place] [address] Care Team Providers Care Pharmacy Care Coordinator Name Role Phone Hayde Castro DO Primary Care Provider + [phone] Reason for Visit * Reason Onset Date Comments Med Refill 07/24/2023 Encounter Details Date Type Department Care Team ([facility] st Contact Info) Description 07/24/2023 Telephone [facility] MEDICINE [address] [place], [place] [phone] Hayde Castro DO 230 [place], [place] [phone] Med Refill Social History Tobacco Use Types Packs/Day Years [...] encounter Miscellaneous Notes * Telephone Encounter - Hayde Murcia LPN - 07/24/2023 11:38 AM EST Medication was sent to [facility][id number] on 05/20/23 #90 with 1 refill. * Telephone Encounter - Nati Simpson - 07/24/2023 11:35 AM EST TC from pt requesting medication refill. Medications needing refill : lisinopril 10 MG tablet To be sent to: [facility]/pharmacy #[id number] - [place], [place] - [address] [place] [address] AT [facility] documented in this encounter Plan of Treatment Not on file documented as of this encounter Visit Diagnoses Not on filedocumented in this encounter Care Teams Pharmacy Care Coordinator Relationship Specialty Start Date End Date Hayde Castro DO [address] [place] [address] PCP - General Family Medicine 06/21/13 documented as of this encounter
--- OUTSIDE RECORDS SUMMARY | 2024-08-25 13:33 | XMS_ITS | Encounter Summary ---
Author Organization [employer] Address [address] [facility] 7t [place] [address] Care Team Providers Care Journalism Professor Name Role Phone Hayde Castro DO Primary Care Provider [phone] Reason for Visit * Reason Comments Med Refill Encounter Details Date Type Department Care Team (Late st Contact Info) Description 06/26/2024 Refill [facility] MEDICINE 230 [place], [place] [phone] Hayde Castro DO 230 [place], [place] [phone] Social History Tobacco Use Types Packs/Day Years [...] Recorded Patient Health Questionnaire-2 Score 1 09/17/2023 Internet Access Answer Date Recorded Internet Access Q1 Yes 02/23/2024 Internet Access Q2 Not on file 02/23/2024 Comments Unknown Sex and Gender Information Value [...] documented as of this encounter Care Teams Journalism Professor Relationship Specialty Start Date End Date Hayde Castro DO [address] [place] [address] PCP - General Family Medicine 06/21/13 documented as of this encounter
--- OUTSIDE RECORDS SUMMARY | 2024-08-25 13:33 | XMS_ITS | Encounter Summary ---
Author Organization [employer] Address [address] [facility] 7t [place] [address] Care Team Providers Care Engineering Specialist Technician Name Role Phone Hayde Castro DO Primary Care Provider [phone] Reason for Visit * Reason Comments Med Refill Encounter Details Date Type Department Care Team (Late st Contact Info) Description 05/24/2024 Refill [facility] MEDICINE 230 [place], [place] [phone] Hayde Castro DO 230 [place] [address] Social History Tobacco Use Types Packs/Day Years [...] documented as of this encounter Care Teams Engineering Specialist Technician Relationship Specialty Start Date End Date Hayde Castro DO [address] [place] [address] PCP - General Family Medicine 06/21/13 documented as of this encounter
--- OUTSIDE RECORDS SUMMARY | 2024-08-25 13:33 | XMS_ITS | Encounter Summary ---
Author Organization [employer] Address 75 [facility] 7t [place] [address] Care Team Providers Care Traffic Analysis Technician Name Role Phone Gloria Hayde Primary Care Provider + [phone] Reason for Visit * Reason Comments Med Refill Encounter Details Date Type Department Care Team ([facility] st Contact Info) Description 07/24/2023 Refill [facility]EDS [address] [place], [place] [phone] Janene Gordon MD [address] [place] [address] Social History Tobacco Use Types Packs/Day Years [...] on filedocumented in this encounter Care Teams Traffic Analysis Technician Relationship Specialty Start Date End Date Hayde Castro DO [address] [place] [address] PCP - General Family Medicine 06/21/13 documented as of this encounter
--- OUTSIDE RECORDS SUMMARY | 2024-08-25 13:33 | XMS_ITS | Clinical Summary ---
Author Organization [employer] Address [address] [facility] 7t [place] [address] Care Team Providers Care Jewish Thought Professor Name Role Phone GloriaHayde Primary Care Provider [phone] Allergies Active Allergy Reactions Criticality Noted Date Comments Amoxicillin Hives 04/11/2017 Cephalexin Hives 04/11/2017 Cephalosporins 03/30/2012 Ciprofloxacin 03/30/2012 Other reaction(s): pain on tendons Penicillin G 03/30/2012 Sulfamethoxazole-Trimetho prim Headache,Nausea And Vomiting 04/11/2017 Medications albuterol (ProAir HFA) 108 (90 Base) MCG/ACT inhaler inhale 2 puff by inhalation route every 4 - 6 hours as needed as needed for cough, wheeze, sob 1 Active baclofen (Lioresal) 10 MG tablet TAKE 1 TABLET BY MOUTH THREE TIMES A DAY NEEDED FOR SPASM/PAIN 60 tablet 2 3 Active naproxen (Naprosyn) 500 MG tablet TAKE 1 TABLET BY ORAL ROUTE 2 TIMES EVERY DAY WITH FOOD NEEDED FOR PAIN 40 tablet 2 3 Active triamcinolone (Kenalog) 0.1 % ointment Apply topically if needed in the morning and at bedtime for rash. 30 g 1 3 Active cetirizine (ZyrTEC) 10 MG tablet Take 1 tablet (10 mg) by mouth Once per day. 30 tablet 11 4 10/21/19 25 Active triamcinolone (Nasacort) 55 MCG/ACT nasal inhaler Administer 2 sprays into each nostril Once per day. 16.5 g 11 4 10/21/19 25 Active Ketotifen Fumarate 0.035 % solution Administer 1 drop into both eyes if needed in the morning and at bedtime (eye itching). 10 mL 2 4 Active Calcium Carb-Cholecalci ferol (Calcium + Vitamin D3) 600-10 MG-MCG tablet Take 1 tablet by mouth 2 times daily. 180 tablet 3 4 Active Multiple Vitamin (Daily-Harjeet Multivitamin) tablet TAKE 1 TABLET BY MOUTH EVERY DAY WITH FOOD 90 tablet 3 4 Active docusate sodium (Colace) 100 MG capsule Take 1 capsule (100 mg) by mouth 2 times daily. 180 capsule 3 4 01/14/20 25 Active hydrocortisone (Anusol-HC) 2.5 % rectal cream Insert into the rectum if needed in the morning and at bedtime for hemorrhoids. 28 g 3 4 Active omeprazole (PriLOSEC) [address] capsule Take 1 capsule (20 mg) by mouth before breakfast and before evening meal. 180 capsule 3 4 01/14/20 25 Active polyethylene glycol, PEG, 3350 (MiraLax) 17 GM/SCOOP powder Take 17 g by mouth if needed each day (constipation). 510 g 4 Active cholecalciferol VITAMIN D (Vitamin D-3) 50 MCG (2000 UT) tablet Take 1 tablet (50 mcg) by mouth Once per day. 90 tablet 3 4 01/14/20 25 Active polycarbophil (Fibercon) 625 MG tablet Take 1 tablet (625 mg) by mouth 2 times daily. 180 tablet 4 01/14/20 25 Active lisinopril (Prinivil) 20 MG tablet Take 1 tablet (20 mg) by mouth Once per day. 90 tablet 4 01/14/20 25 Active atorvastatin (Lipitor) 10 MG tablet Take 1 tablet (10 mg) by mouth Once per day. 90 tablet 4 01/14/20 25 Active metoprolol succinate XL (Toprol-XL) 25 MG 24 hr tablet Take 1 tablet (25 mg) by mouth Once per day. Do not crush or chew. 90 tablet 4 Active witch shorty-glycerin (Tucks) pad Apply topically if needed for irritation or hemorrhoids. 100 each 3 4 Active lidocaine (Lidoderm) 5 % patch Apply 2 patches topically Once per day. Remove & discard patch within 12 hours or as directed by MD. 60 patch 3 4 Active Diclofenac Sodium 1 % gel APPLY 2 GRAMS TOPICALLY IF NEEDED IN THE MORNING, AT NOON, IN THE EVENING, AND AT BEDTIME (PAIN). 100 g 3 5 Active Active Problems Problem Noted Date Diagnosed Date Prediabetes 10/21/2023 Chronic constipation 08/05/2022 Chronic hand pain 08/05/2022 Healthcare maintenance 08/05/2022 Chronic allergic rhinitis 08/05/2022 Bilateral carpal tunnel syndrome 03/28/2015 Chronic neck pain 03/28/2015 Essential hypertension 03/28/2015 Chronic gastroesophageal reflux disease 03/28/20 15 Chronic pain of both shoulders 03/28/2015 Vitamin D deficiency 03/28/2015 Encounters Date Type Department Care Team Description 07/09/2024 Telephone [facility] MEDICINE [address] [place], [place] [phone] Hayde Castro DO Med Refill 07/08/2024 Refill [facility] MEDICINE [address] [place], [place] [phone] Hayde Castro DO 06/26/2024 Refill [facility] MEDICINE [address] [place] [address] Hayde Castro DO from Last 3 Months Immunizations Name Administration Dates Next Due Moderna Covid-19 Vaccine 12+ 08/25/2021,07/28/19 22 TD (adult), 2 Lf tetanus tox oid, preservative free, adsorbed 09/17/2023,08/25/2006,12/17/1995 Tdap 08/17/2013 Social History Tobacco Use Types Packs/Day Years Used Date Smoking Tobacco: Never Smokeless Tobacco: Never Tobacco Cessation:Counseling Given: Not Answered Alcohol Use Standard Drinks/Week Comments Never 0 [...] Orientation Straight 04/22/2022 10 :14 AM EDT Last Filed Vital Signs Vital Sign Reading Time Taken Comments Blood Pressure 154/110 02/18/2024 11:11 AM EDT Pulse 85 02/18/2024 11:11 AM EDT Temperature 36.4 ??C (97.5 ??F) 01/14/2024 10:24 AM E DT Respiratory Rate 18 02/18/2024 11:10 AM EDT Oxygen Saturation 98% 02/18/2024 11:10 AM EDT Inhaled Oxygen Concentration - - Weight 83.9 kg (185 lb) 01/14/2024 10:24 AM EDT Height 157.5 cm (5' 2 ) 01/14/2024 10:24 AM EDT Body Mass Index 33.84 01/14/2024 10:24 AM EDT Plan of Treatment Health Maintenance Due Date Last Done Comments CT Colonography 1962 Colonoscopy 1962 FIT DNA/Cologuard 1962 Sigmoidoscopy 1962 Alcohol/Substance Use Screening 1974 Pap Smear 1983 Cervical Cancer Screening 1992 HPV/Cotest 1992 Pneumococcal Vaccine: 50+ Years (1 of 1 - PCV) 2012 Zoster Vaccines (1 of 2) 2012 Colorectal Cancer Screening 08/31/2023 FIT 08/31/2023 08/30/2022 FOBT 08/31/2023 08/30/2022 COVID-19 Vaccine ( season) 2024 08/25/2021, 07/28/2021 Influenza Vaccine (#1) 2024 Depression Screening 09/16/2024 09/17/2023, 09/17/19 Diabetes: Hemoglobin A1C 09/30/2024 024, 11/04/2022, 10/27/2021, Additional history exists SDOH Screening 01/05/2025 01/06/2024 Tobacco Screening 01/13/2025 01/14/2024 Mammogram 08/13/2025 08/13/2023, 10/0 01/2022, 01/12/2021, Additional history exists Lipid Panel 09/30/2028 10/01/2023, 10/21, 10/27/2021 DTaP/Tdap/Td Vaccines (3 - Td or Tdap) 09/16/2033 09/17/2023, 08/17/2013, 08/25/2006, Additional history exists RSV Patients and Patients Aged 60 years or older (1 - 1-dose 75+ series) 2037 HIV Screening Completed 10/27/2021 Hepatitis C Screening Completed 10/27/2021 HIB Vaccines Aged Out No longer eligi ble based on patient's age to complete this topic HPV Vaccines Aged Out No longer eligi ble based on patient's age to complete this topic Hepatitis A Vaccines Aged Out No long er eligible based on patient's age to complete this topic Hepatitis B Vaccines Aged Out No long er eligible based on patient's age to complete this topic IPV Vaccines Aged Out No longer eligi ble based on patient's age to complete this topic Meningococcal Vaccine Aged Out No maribel oleg eligible based on patient's age to complete this topic RSV under 20 months Aged Out No longe r eligible based on patient's age to complete this topic Rotavirus Vaccines Aged Out No longer eligible based on patient's age to complete this topic Procedures Procedure Name Priority Date/Time Associated Diagnosis Comments HEMOGLOBIN A1C Routine 10/01/2023 10:42 AM EDT Essential hypertension LIPID PANEL, STANDARD Routine 10/01/2023 10:42 AM EDT Essential hypertension BI MAMMOGRAM SCREENING TOMOSYNTHESIS BILATERAL Routine 08/13/2023 11:45 AM EST FECAL GLOBIN BY IMMUNOCHEMISTRY Routine 08/30/2022 12:50 PM EST [facility] HISTORICAL HEPATITIS C ANTIBODY RFLX Routine 10/27/2021 9:44 AM EDT [facility] HISTORICAL HIV AB/AG Routine 10/27/2021 9:44 AM EDT from Last 3 Months or Most Recently Relevant to Health Maintenance Results * Hemoglobin A1c (10/01/2023 10:42 AM EDT) Hemoglobin A1c 5.9 <6.0 % [facility] Comment:Hemoglobin A1C Refer ence Range Adults: 4.8 - 6.0 % Non diabetic: < 6.0 % Goal: < 7.0 %Additional Action Suggested: > 8.0 %Note: Hemoglobin A1c results are invalid for patients with abnormal amounts of HbF. Blood transfusions may impact the HbA1c concentration in the patient sample. Estimated Average Glucose 123 mg/dL [facility] Comment:eAG = Estimated ave rage glucose which is %A1C expressed asaverage glucose, using the formula of the E5X-XzzntpqDzhwoee Glucose study (ADAG), Diabetes Care, Vol.31,#8,Jan. 2007 Blood Venous blood specimen / Unknown 10/01/2023 10:42 AM EDT 10/01/2023 10:42 AM EDT Hayde Castro DO LAB BLOOD ORDERABLES Final R esult [facility] [address] [place] [address] [phone] * (ABNORMAL) Lipid Panel, Standard (10/01/2023 10:42 AM EDT) Triglycerides 228(H) <150 mg/dL [facility] Comment:Desirable Triglyceri de: less than 150 mg/dLBorderline High Triglyceride 150-199 mg/dLHigh Triglyceride: 200-499 mg/dLVery High Triglyceride: greater than or equal to 5OO mg/dL Cholesterol 191 <200 mg/dL [facility] Comment:Desirable Cholestero l: less than 200 mg/dLBorderline High Cholesterol: 200-239 mg/dLHigh Cholesterol: greater than 239 mg/dL LDL Cholesterol Calculated 106(H) <100 mg/dL [facility] Comment:Desirable LDL: less than 100 mg/dLNear Optimal/Above Optimal LDL: 110- 129 mg/dLBorderline High LDL: 130-159 mg/dLHigh LDL: 160-189 mg/dLVery High LDL: greater than or equal to 190 mg/dL HDL Cholesterol 40(L) >40 mg/dL [facility] Comment:Desirable HDL: great er than 40 mg/dL Note: This HDL assay may give artificially low results in patients with liver disease. Blood Venous blood specimen / Unknown 10/01/2023 10:42 AM EDT 10/01/2023 10:42 AM EDT us Hayde Castro DO LAB BLOOD ORDERABLES Final R esult [facility] [address] [place] [address] [phone] * BI Mammogram Screening Tomosynthesis Bilateral (08/13/2023 11:45 AM EST) Anatomical Region Laterality Modality Breast Bilateral Mammography 08/13/2023 11:4 5 AM EST Narrative 09/04/2023 5:38 AM EDT ? [facility] ? [address] ?[place] [address] ? Mammography Report ? Signed ? Patient: Gudino Lazu,Iris S ?MR#: [id number] ?? [id number] ? : 1960 ?Acct:[id number] ? Age/Sex: 63 / F ?ADM Date: 08/13/23 ? Loc: HO.MAMMO ? Attending Dr: Hayde Castro DO ? Ordering Physician: Hayde Castro DO ?Results: 1N ?? egative ? Date of Service: 08/13/23 ?Follow Up: 1 Year From Orig ?? inal Mammogram ? Procedure(s): MM tomosynthesis screening BI ?? Accession Number(s): [id number] ? cc: Hayde Castro DO ? EXAMINATION: ?? MM SCREENING DIGITAL BREAST TOMOSYNTHESIS, BILATERAL ? CLINICAL INFORMATION: ? Screening. Asymptomatic. ? COMPARISON: ?? Mammography: This study is compared with prior exams dating back to ?? 2018. ? TECHNIQUE: ?? Digital breast tomosynthesis is performed in both the craniocaudal and ?? mediolateral oblique views along with computer-aided detection (CAD). ?? Synthesized 2D images are generated from the tomosynthesis. ? FINDINGS: ?? The breasts are heterogeneously dense, which may obscure small masses ?? (ACR BI-RADS breast composition Category c). ? There are no significant masses, abnormal calcifications, or other ?? abnormalities. ? MM/MM tomosynthesis screening BI ?? IMPRESSION: ?? No mammographic evidence of malignancy. ? ASSESSMENT: ? BI-RADS BI-RADS 1 - Negative ? RECOMMENDATION: ?? Routine annual mammography screening. ? 1 year F/U ? This examination should not preclude the clinical evaluation of a ?? suspicious palpable abnormality. ? This patient's information was entered into a reminder system with a ?? target due date for their next mammogram. ? Dictated By: ?Beatrice Haley MD ? Signed By: ?<Electronically signed by Beatrice Haley MD in OV> ? 09/04/23534 ? DD/ 1145 ? TD/TT: ? Guidance Counselor: ? Procedure Note Ney aCnales - 09/04/2023 [facility]'s [address] [place] [address] Mammography Report Signed Patient: Carmen Mckinney [facility]#: [id number] : 2Acct:[id number] Age/Sex: 63 / FADM Date: 08/13/23 Loc: HO.MAMMO Attending Dr: Hayde Castro DO Ordering Physician: Hayde Castroults: 1N egative Date of Service: 08/13/23Follow Up: 1 Year From Orig inal Mammogram Procedure(s): MM tomosynthesis screening BI Accession Number(s): [id number] cc: Hayde Castro DO EXAMINATION: MM SCREENING DIGITAL BREAST TOMOSYNTHESIS, BILATERAL CLINICAL INFORMATION: Screening. Asymptomatic. COMPARISON: Mammography: This study is compared with prior exams dating back to 2019. TECHNIQUE: Digital breast tomosynthesis is performed in both the craniocaudal and mediolateral oblique views along with computer-aided detection (CAD). Synthesized 2D images are generated from the tomosynthesis. FINDINGS: The breasts are heterogeneously dense, which may obscure small masses (ACR BI-RADS breast composition Category c). There are no significant masses, abnormal calcifications, or other abnormalities. MM/MM tomosynthesis screening BI IMPRESSION: No mammographic evidence of malignancy. ASSESSMENT: BI-RADS BI-RADS 1 - Negative RECOMMENDATION: Routine annual mammography screening. 1 year F/U This examination should not preclude the clinical evaluation of a suspicious palpable abnormality. This patient's information was entered into a reminder system with a target due date for their next mammogram. Dictated By: Beatrice Haley MD Signed By: <Electronically signed by Beatrice Haley MD in OV> 09/04/23 0535 DD/ 1145 TD/TT: Guidance Counselor: us Hayde Castro DO IMG BI PROCEDURES Final Resu lt * Fecal Globin by Immunochemistry (08/30/2022 12:50 PM EST) Fecal Globin By Immunochemistry SEE NOTE [facility] Comment: ??FECAL GLOBIN BY IMMUNOCHEMISTRY ?Micro Number: ?[id number] ??Test Status: ? Final ??Specimen Source: ?? Insure () fobt test card ??Specimen Quality: ??Adequate ??Fecal Globin: ?Not Detected ??Comment: ? Test results may be invalid as no date of ? collection was provided. Specimens are stable ? for 14 days. NO COLLECTION DATE RECEIVED. WE HAVE USED THE DATE THE SPECIMEN WAS RECEIVED BY THIS LABORATORY THE COLLECTION DATE. IF THIS IS INCORRECT, PLEASE CONTACT CLIENT SERVICES. PHONE NUMBER: 08/30/2022 12: 43 PM EST Narrative [facility] - 08/30/2022 12:50 PM EST FASTING: UNKNOWN us Hayde Castro DO LAB BODY FLUIDS AND STOOLS O RDERABLES Final Result [facility] [address] [facility] [place] [address] [employer] [facility] [address], ([address]) [place] [address] * HEPATITIS C ANTIBODY RFLX (10/27/2021 9:44 AM EDT) Hepatitis C Antibody Nonreactive Nonreactive [facility] Comment: Antibodies to HCV not detected; does not exclude early acute HCV infection. 10/27/2021 9:44 AM EDT Hayde Castro DO HISTORICAL/NON ORDERABLE LAB S Final Result Performing Organization Address [facility] de Phone Number [facility] [address] * HIV AB/AG (10/27/2021 9:44 AM EDT) Pathologist [facility] HIV AB/AG Nonreactive Nonreactive [facility] Comment: HIV-1 p24 Ag and/or HIV-1/HIV-2 Ab not detected. ?? A test result that is nonreactive does not exclude the possibility of exposure to or infection with HIV-1 and/or HIV-2. Nonreactive results in this assay for individuals with prior exposure to HIV-1 and/or HIV-2 may be due to antigen and antibody levels that are below the limit of detection of this assay. ?? The [facility] HIV Ag/Ab Combo assay result and supplemental assay results should be interpreted in conjunction with the patient's clinical presentation, history and other laboratory results. ??If the results are inconsistent with clinical evidence, additional testing is suggested to confirm the result. 10/27/2021 9:44 AM EDT Hayde Castro DO HISTORICAL/NON ORDERABLE LAB S Final Result Performing Organization Address [facility] Co de Phone Number [facility] [address] from Last 3 Months or Most Recently Relevant to Health Maintenance Insurance C3 Care Teams Jewish Thought Professor Relationship Specialty Start Date End Date Hayde Castro DO [address] [place] [id number] PCP - General Family Medicine 06/21/13
== END 2024-08-25 11:15 | disposition home or self-care (01) ==
LOC: HO.MAMMO 11:14
PROVIDERS: PCP Family Medicine; Visit Provider Family Medicine
DX: Z12.31 Encounter for screening mammogram for malignant neoplasm of breast (principal)
CPT/HCPCS: 77063; 77067

== ENCOUNTER → 2024-08-25 11:30 | Outpatient (BNV) | payer MEDICAID, SELFPAY | PROVIDERS: PCP Family Medicine; Visit Provider Internal Medicine | DX: Z12.31 Encounter for screening mammogram for malignant neoplasm of breast (principal) | CPT/HCPCS: 77063; 77067 ==